=== PATIENT | male | born 1985 | race Caucasian/White ===

== ENCOUNTER 2016-08-21 08:20 | Emergency (ER) | payer OTHER ==
[~2016-08-21] VITALS: Ht 175.3 cm; Wt 90.0 kg
[2016-08-21 08:21] VITALS: BP 156/97; PULSE 78; RESP 15; TEMP 97.8; O2SAT 100
[2016-08-21 09:12] VITALS: BP 133/86; PULSE 78; RESP 15; O2SAT 100
--- NOTE | 2016-08-21 09:28 | PD ---
HPI Chief Complaint: GI Complaint Time Seen by Provider: 09:21 Travel History International Travel<30 days: No Contact w/Intl Traveler<30days: No Traveled to known affect area: No History of Present Illness HPI Patient is a 31-year-old healthy male presents emergency Department with complaint of rectal bleeding. Yesterday evening after having a BM patient had a scant amount of bright red blood on the toilet paper when he wiped. There is no blood intermixed with the stool. He has not had any associated pain. In the interim, patient has had normal bowel movement without any bleeding. Denies any history of GI bleeding, abdominal pain, etc. Patient states he felt somewhat lightheaded this morning prompting ER visit. PFSH Past Medical History Medical History: Denies Significant Hx Diminished Hearing: No Tetanus Vaccination: Unknown Influenza Vaccination: No ?: Not Past Surgical History Surgical History: No Previous Surgery Social History Alcohol Use: Yes (rarely ) Tobacco Use: No Substance Use: No Allergies-Medications (Allergen,Severity, Reaction): Coded Allergies: No Known Allergies (Unverified , 01/07/16) Reported Meds & Prescriptions Reported Meds & Active Scripts Active No Active Prescriptions or Reported Medications Review of Systems Except as stated in HPI: all other systems reviewed are Neg Physical Exam Narrative GENERAL: Well-appearing male in no acute distress SKIN: Focused skin assessment warm/dry. HEAD: Normocephalic. EYES: No scleral icterus. No injection or drainage. ENT: Mucous membranes pink and moist. NECK: Supple CARDIOVASCULAR: Regular rate and rhythm. RESPIRATORY: No accessory muscle use. GASTROINTESTINAL: Abdomen soft, non-tender, nondistended. Hepatic and splenic margins not palpable. RECTAL: External rectal exam with small fissure at approximately 12:00, no active bleeding. No internal, external hemorrhoids, digital rectal exam unremarkable, Hemoccult negative MUSCULOSKELETAL: Normal gait NEUROLOGICAL: Awake and alert. Normal speech. PSYCHIATRIC: Appropriate mood and affect; insight and judgment normal. Data Data Last Documented VS Vital Signs Date Time Temp Pulse Resp B/P Pulse Ox O2 Delivery O2 Flow Rate FiO2 08/21/16 09:12 78 15 133/86 100 08/21/16 08:21 97.8 MDM Medical Decision Making Medical Screen Exam Complete: Yes Emergency Medical Condition: Yes Medical Record Reviewed: Yes Differential Diagnosis Healthy 31-year-old male here with bright red blood per rectum on the toilet paper after bowel movement yesterday, none since. Exam shows anal fissure, without active bleeding. No evidence of hemorrhoids on exam. Less likely diverticular bleed, polyp, inflammatory bowel disease are brisk upper GI bleed. Narrative Course Exam shows obvious anal fissure, likely the cause of his bright red blood per rectum on the toilet paper after BM. He has since had bowel movement without any active bleeding and I do not think warrants further workup. Patient and fianc were reassured and discharged home. [facility] Point of Care Internal Pos. & Neg. Controls: Passed Fecal Specimen Occult Blood: Negative Diagnosis Primary Impression: Anal fissure Referrals: Primary Care Physician as needed Med/Other Pt SpecificInfo: No Change to Meds Scripts No Active Prescriptions or Reported Meds Disposition: 01 DISCHARGE HOME Condition: Stable Samaria Bradley MD August 21, 2016 09:28
== END 2016-08-21 09:28 | disposition home or self-care (01) ==
LOC: NEPD 08:20
DX: K60.2 Anal fissure, unspecified (principal); R42 Dizziness and giddiness
CPT/HCPCS: 99284

== ENCOUNTER 2016-10-04 17:10 | Emergency (ER) | payer OTHER ==
[~2016-10-04] VITALS: Ht 175.3 cm; Wt 93.0 kg
[2016-10-04 17:13] VITALS: BP 149/94; PULSE 82; RESP 20; TEMP 98.4; O2SAT 99
[2016-10-04 19:01] LABS: AUTOMATED NEUTROPHIL # 4.1 TH/MM3 (1.8-7.7); BASOPHIL % 0.5 % (0.0-2.0); EOSINOPHIL # 0.1 TH/MM3 (0-0.4); EOSINOPHIL % 2.1 % (0.0-4.0); HEMATOCRIT 45.9 % (39.0-51.0); HEMO FLAGS DIFF FINAL; LYMPHOCYTE # 2.1 TH/MM3 (1.0-4.8); MEAN CELL VOLUME 87.6 FL (80.0-100.0); MEAN CORPUSCULAR HEMOGLOBIN 28.6 PG (27.0-34.0); MEAN CORPUSCULAR HGB CONC 32.6 % (32.0-36.0); MONO % 7.3 % (0.0-8.0); NEUT % 60.1 % (16.0-70.0); PLATELET COUNT 189 TH/MM3 (150-450); RED BLOOD COUNT 5.24 MIL/MM3 (4.50-5.90); RED CELL DISTRIBUTION WIDTH 13.4 % (11.6-17.2); WHITE BLOOD COUNT 6.9 TH/MM3 (4.0-11.0)
--- NOTE | 2016-10-04 19:01 | PD ---
HPI Chief Complaint: Headache Time Seen by Provider: 18:50 Travel History International Travel<30 days: No Contact w/Intl Traveler<30days: No Traveled to known affect area: No History of Present Illness HPI 31 year old male presents emergency department after he experienced an episode of a tingling sensation across his forehead that lasted for less than 20 seconds today while at work. He reports immediately after the episode he felt anxious and some chest tightness that lasted for less than a minute. He reports similar episodes over the last 6 months where he was evaluated in the emergency department and diagnosed with anxiety. He denies headache, shortness of breath, numbness/tingling/weakness of the extremities. He reports the symptoms have completely resolved in the emergency department. He is here with his mother. They report a strong family history of generalized anxiety disorder. [facility] Past Medical History Medical History: Denies Significant Hx Diminished Hearing: No Social History Alcohol Use: Yes (rarely ) Tobacco Use: No Substance Use: No Allergies-Medications (Allergen,Severity, Reaction): Coded Allergies: No Known Allergies (Unverified , 10/04/16) Reported Meds & Prescriptions Reported Meds & Active Scripts Active No Active Prescriptions or Reported Medications Review of Systems Except as stated in HPI: all other systems reviewed are Neg General / Constitutional: No: Fever Eyes: No: Visual changes HENT: No: Headaches Cardiovascular: No: Chest Pain or Discomfort Respiratory: No: Shortness of Breath Gastrointestinal: No: Abdominal Pain Genitourinary: No: Dysuria Musculoskeletal: No: Pain Skin: No Rash Psychiatric: Positive: Anxiety Physical Exam Narrative GENERAL: There, well-appearing male no acute distress. SKIN: Focused skin assessment warm/dry. HEAD: Atraumatic. Normocephalic. EYES: Pupils equal and round. No scleral icterus. No injection or drainage. EOMs intact. ENT: No nasal bleeding or discharge. Mucous membranes pink and moist. NECK: Trachea midline. No JVD. CARDIOVASCULAR: Regular rate and rhythm. No murmur appreciated. RESPIRATORY: No accessory muscle use. Clear to auscultation. Breath sounds equal bilaterally. GASTROINTESTINAL: Abdomen soft, non-tender, nondistended. Hepatic and splenic margins not palpable. MUSCULOSKELETAL: No obvious deformities. No clubbing. No cyanosis. No edema. NEUROLOGICAL: Awake and alert. No obvious cranial nerve deficits. Motor grossly within normal limits. Normal speech. 5 out of 5 strength in extremities. PSYCHIATRIC: Appropriate mood and affect; insight and judgment normal. Data Data Last Documented VS Vital Signs Date Time Temp Pulse Resp B/P Pulse Ox O2 Delivery O2 Flow Rate FiO2 10/04/16 17:13 98.4 82 20 149/94 99 Room Air Orders Electrocardiogram (10/04/16 17:26) Complete Blood Count With Diff (10/04/16 17:26) Basic Metabolic Panel (Bmp) (10/04/16 17:26) Ckmb (Isoenzyme) Profile (10/04/16 17:) Troponin I (10/04/16 17:) CKMB (10/04/16 18:03) CKMB% (10/04/16 18:03) Labs Laboratory Tests Test 10/04/16 18:03 White Blood Count 6.9 TH/MM3 Red Blood Count 5.24 MIL/MM3 Hemoglobin 15.0 GM/DL Hematocrit 45.9 % Mean Corpuscular Volume 87.6 FL Mean Corpuscular Hemoglobin 28.6 PG Mean Corpuscular Hemoglobin 32.6 % Concent Red Cell Distribution Width 13.4 % Platelet Count 189 TH/MM3 Mean Platelet Volume 8.6 FL Neutrophils (%) (Auto) 60.1 % Lymphocytes (%) (Auto) 30.0 % Monocytes (%) (Auto) 7.3 % Eosinophils (%) (Auto) 2.1 % Basophils (%) (Auto) 0.5 % Neutrophils # (Auto) 4.1 TH/MM3 Lymphocytes # (Auto) 2.1 TH/MM3 Monocytes # (Auto) 0.5 TH/MM3 Eosinophils # (Auto) 0.1 TH/MM3 Basophils # (Auto) 0.0 TH/MM3 CBC Comment DIFF FINAL Differential Comment Sodium Level 138 MEQ/L Potassium Level 3.7 MEQ/L Chloride Level 102 MEQ/L Carbon Dioxide Level 29.1 MEQ/L Anion Gap 7 MEQ/L Blood Urea Nitrogen 16 MG/DL Creatinine 1.02 MG/DL Estimat Glomerular Filtration 86 ML/MIN Rate Random Glucose 107 MG/DL Calcium Level 9.7 MG/DL Total Creatine Kinase 273 U/L Troponin I LESS THAN 0.02 NG/ML MDM Medical Decision Making Medical Screen Exam Complete: Yes Emergency Medical Condition: Yes Differential Diagnosis Generalized anxiety disorder, anxiety attack, Narrative Course Patient seen and evaluated. Patient is stable at time of exam. History physical exam is benign. He reports the symptoms are similar to his previous anxiety attacks. EKG: Sinus rhythm rate of [address] or T-wave changes CBC: Unremarkable BMP: Unremarkable Patient currently has no symptoms in the emergency room. Patient is diagnosed with generalized anxiety disorder. He was instructed to follow up with his primary care doctor. Diagnosis Primary Impression: Anxiety Referrals: Primary Care Physician Additional Instructions: Follow-up with your primary care doctor. Return to emergency department if you develop new or worsening symptoms. Scripts No Active Prescriptions or Reported Meds Disposition: 01 DISCHARGE HOME Condition: Stable Elena Diaz Oct 04, 2016 19:01
[2016-10-04 19:16] LABS: ANION GAP 7 MEQ/L (5-15); BICARBONATE 29.1 MEQ/L (21.0-32.0); BLOOD UREA NITROGEN 16 MG/DL (7-18); CHLORIDE 102 MEQ/L (98-107); GLOMERULAR FILTRATION RATE 86 ML/MIN (>89); POTASSIUM 3.7 MEQ/L (3.5-5.1); SODIUM (NA) 138 MEQ/L (136-145)
[2016-10-04 19:20] LABS: CREATINE KINASE 273 U/L (39-308)
[2016-10-04 19:33] LABS: CKMB 1.7 NG/ML (0.5-3.6)
--- NOTE | 2016-10-05 13:50 | EKG ---
Date Performed: 10/04/2016 Time Performed: 17:57:44 PTAGE: 31 years EKG: Sinus rhythm NORMAL ECG Compared to prior tracing no significant change PREVIOUS TRACING : 01/07/2016 02.07 DOCTOR: Bernabe Shelby Interpretating Date/Time 10/05/2016 13:49:22
== END 2016-10-04 19:38 | disposition home or self-care (01) ==
LOC: NEPD 17:10
DX: F41.1 Generalized anxiety disorder (principal); R07.89 Other chest pain
CPT/HCPCS: 80048; 82550; 82552; 84484; 85025; 93005